=== PATIENT | male | born 1965 | race African-American/Black ===

== ENCOUNTER 2017-05-08 22:16 | Emergency (ER) | payer MEDICAID ==
[~2017-05-08] VITALS: Ht 188 cm; Wt 170.0 kg
[~2017-05-08 22:16] MED LIST: ALBU6.7H INH; ASPI-1159 PO; IBUP-2029 PO; INSU100C3 SQ; IPRA4AER IH; LEVVL SQ; LISI10TA5 PO; NAPR-217 PO
[2017-05-09 03:16] LABS: EOSINOPHILS % 3.1 % (0.0-5.0); HEMATOCRIT. 38.2 % (42.0-52.0); HEMOGLOBIN. 12.4 g/dL (14.0-18.0); LYMPHOCYTES % 38.6 % (20.0-50.0); MEAN CORPUSCULAR HEMOGLOBIN 25.5 pg (28.0-32.0); MEAN CORPUSCULAR VOLUME 78.6 fL (80.0-94.0); MEAN PLATELET VOLUME 8.7 fl (7.4-10.4); MONOCYTES % 7.1 % (2.0-8.0); NEUTROPHILS % 50.2 % (40.0-76.0); PLATELET 248 x1000/uL (130-400); RED BLOOD CELL COUNT 4.86 mill/uL (4.7-6.1); RED CELL DISTRIBUTION WIDTH 14.9 % (11.6-14.6)
[2017-05-09 03:17] LABS: CHLORIDE 103 mEq/L (98-107)
[2017-05-09 03:22] LABS: CARBON DIOXIDE 27 mEq/L (21-32)
[2017-05-09 04:56] VITALS: BP 127/76
== END 2017-05-09 05:17 | disposition home or self-care (01) ==
LOC: ER 22:16
DX: E11.40 Type 2 diabetes mellitus with diabetic neuropathy, unspecified (principal); E13.621 Other specified diabetes mellitus with foot ulcer; I10 Essential (primary) hypertension; E78.00 Pure hypercholesterolemia, unspecified; J44.9 Chronic obstructive pulmonary disease, unspecified; Z79.4 Long term (current) use of insulin; Z79.82 Long term (current) use of aspirin; Z88.0 Allergy status to penicillin; Z88.8 Allergy status to other drugs, medicaments and biological substances
CPT/HCPCS: 36415; 80048; 85025; 99284; Z7610